=== PATIENT | male | born 1980 | race Caucasian/White ===

== ENCOUNTER 2025-02-10 00:23 | Inpatient (IN) | payer SELFPAY ==
[2025-02-10 00:28] VITALS: BMI 34.7
[2025-02-10] MEDS ORDERED: ACETAMINOPHEN INJECTION 100 ML ONE (00:49)
[2025-02-10] MEDS ORDERED: ONDANSETRON 4 MG/2 ML VIAL ONE (01:23)
[2025-02-10 01:29] LABS: ABSOLUTE IMMATURE GRANULOCYTES 0.04 x10^3/uL (0.0-0.031); BASOPHILS # 0.02 x10^3/uL (0.01-0.08); EOSINOPHIL % 0.1 % (0.8-7.0); EOSINOPHILS # 0.01 x10^3/uL (0.04-0.54); MCHC 34.2 g/dl (32.3-36.5); MEAN CELL VOLUME 85.4 fl (79.0-92.2); MEAN PLT VOLUME 9.9 fl (9.4-12.4); MONOCYTE # 0.74 x10^3/uL (0.30-0.82); MONOCYTE % 5.3 % (5.3-12.2); RDW 12.6 % (12.1-15.9)
[2025-02-10] MEDS: SODIUM CHLORIDE 0.9% 500 ML INFUS.BAG IV ONE (01:31)
[2025-02-10] MEDS: ACETAMINOPHEN 1000 MG/100 ML BAG IVPB ONE (01:31)
[2025-02-10] MEDS: ONDANSETRON 4 MG/2 ML VIAL IVPUSH ONE (01:31)
[2025-02-10 01:57] LABS: GLUCOSE,RANDOM 96.0 mg/dL (74-106)
[2025-02-10 01:58] LABS: TOT PROT 7.6 g/dl (6.4-8.2)
[2025-02-10 01:59] LABS: CO2 22.0 mmol/L (21-32)
[2025-02-10 02:00] LABS: ALK PHOS 66.0 U/L (40-150)
[2025-02-10 02:03] LABS: CREATININE 0.8 mg/dL (0.55-1.3); SGOT/AST 18.0 U/L (5-34); SGPT/ALT 18.0 U/L (0-55)
[2025-02-10 02:27] LABS: HCV DIAGNOSTIC IN-HOUSE W/RFLX NON-REACTIVE (NONREACTIVE); HIV INTERPRETATION NEGATIVE (NEGATIVE)
[2025-02-10] MEDS ORDERED: CEFTRIAXONE 1 GM/50 ML BAG ONE (03:48)
[2025-02-10 03:50] LABS: URINE APPEARANCE CLEAR; URINE BILIRUBIN NEGATIVE (NEGATIVE); URINE COLOR YELLOW; URINE GLUCOSE (UA) NEGATIVE (NEGATIVE); URINE KETONE TRACE (NEGATIVE); URINE LEUK ESTERASE NEGATIVE (NEGATIVE); URINE NITRITE NEGATIVE (NEGATIVE); URINE PROTEIN NEGATIVE (NEGATIVE); URINE UROBILINOGEN 0.2 mg/dL (0.2-1.0)
[2025-02-10] MEDS: CEFTRIAXONE 1,000 MG in DEXTROSE 5%-WATER - 50 ML IVPB ONE (03:56)
[2025-02-10] MEDS ORDERED: ACETAMINOPHEN 1000 MG/100 ML BAG IVPB PRN (05:00)
[2025-02-10] MEDS ORDERED: MORPHINE SULFATE 2 MG/ML SYRINGE IVPUSH PRN (05:02)
[2025-02-10] MEDS ORDERED: ONDANSETRON 4 MG/2 ML VIAL IVPUSH PRN ×2 (05:09→11:54)
[2025-02-10] MEDS: LACTATED RINGERS SOLUTION 1,000 ML/1,000 ML INFUS.BAG IV SCH (06:04)
[2025-02-10 06:56] LABS: INR 1.27 (0.83-1.09); PROTHROMBIN TIME (PATIENT) 14.0 SEC (9.7-13.0)
[2025-02-10 07:14] LABS: ABSOLUTE IMMATURE GRANULOCYTES 0.04 x10^3/uL (0.0-0.031); BASOPHILS # 0.02 x10^3/uL (0.01-0.08); EOSINOPHIL % 0.0 % (0.8-7.0); EOSINOPHILS # 0.00 x10^3/uL (0.04-0.54); MCHC 33.7 g/dl (32.3-36.5); MEAN CELL VOLUME 86.1 fl (79.0-92.2); MEAN PLT VOLUME 10.8 fl (9.4-12.4); MONOCYTE # 0.69 x10^3/uL (0.30-0.82); MONOCYTE % 5.5 % (5.3-12.2); RDW 12.9 % (12.1-15.9)
[2025-02-10 07:20] LABS: GLUCOSE,RANDOM 88.0 mg/dL (74-106); TOT PROT 6.8 g/dl (6.4-8.2)
[2025-02-10 07:21] LABS: CO2 19.0 mmol/L (21-32)
[2025-02-10 07:23] LABS: ALK PHOS 61.0 U/L (40-150)
[2025-02-10 07:25] LABS: CREATININE 0.75 mg/dL (0.55-1.3); SGOT/AST 16.0 U/L (5-34); SGPT/ALT 16.0 U/L (0-55)
[2025-02-10] MEDS: CEFTRIAXONE 1 GM in DEXTROSE 5%-WATER - 50 ML IVPB SCH (09:37)
[2025-02-10] MEDS ORDERED: BUPIVACAINE HCL/PF 0.25% (2.5MG/ML) 10 ML VIAL ONE (09:59)
[2025-02-10] MEDS ORDERED: ROCURONIUM BROMIDE 50 MG/5 ML SYRINGE ONE ×2 (10:24→10:41)
[2025-02-10] MEDS ORDERED: PROPOFOL 60 ML ONE (10:24)
[2025-02-10] MEDS ORDERED: SUCCINYLCHOLINE CHLORIDE 200 MG/10 ML SYRINGE ONE (10:24)
[2025-02-10] MEDS ORDERED: MIDAZOLAM HCL 2 MG/2 ML SINGLE DOSE VIAL ONE (10:26)
[2025-02-10] MEDS: BUPIVACAINE HCL/PF 0.25% (2.5MG/ML) 10 ML VIAL IJ ONE (10:40)
[2025-02-10] MEDS ORDERED: SUGAMMADEX SODIUM 200 MG/2 ML VIAL ONE (10:55)
[2025-02-10] MEDS: LACTATED RINGERS SOLUTION 1,000 ML IV SCH (11:38)
[2025-02-10] MEDS ORDERED: IBUPROFEN 600 MG TABLET (FP) PO PRN ×2 (11:54→14:10)
[2025-02-10 12:05] VITALS: RESP 18
[2025-02-10] MEDS: ACETAMINOPHEN 500 MG TABLET (FP) PO SCH (13:38)
[2025-02-10 14:23] VITALS: BP 123/72; PULSE 69; TEMP 99.1
== END 2025-02-10 16:17 | disposition home or self-care (01) | DRG 225 ==
LOC: JER 00:23 → JERBED 04:03 → J5S 08:22
PROVIDERS: ADMIT Internal Medicine; ATTEND Student in an Organized Health Care Education/Training Program
PROC: 0DTJ4ZZ Resection of Appendix, Percutaneous Endoscopic Approach (ICD-10-PCS; principal; 2025-02-10 10:00)
DX: K35.80 Unspecified acute appendicitis (principal)
CPT/HCPCS: 36415; 71045-TC-FY; 74177-TC; 76705-TC; 80053; 81003; 83690; 83735; 84100; 84484; 85025; 85610; 86803; 86850; 86900; 86901; 87086; 87389; 88304-TC; 93005; 93010; 94760; 99285-25; Q9967